=== PATIENT | male | born 1960 | race Caucasian/White ===

== ENCOUNTER 2021-01-18 08:30 | Outpatient (CLI) | payer OTHER ==
[2021-01-18] MEDS ORDERED: FURO80TA3 PO (08:58)
[2021-01-18] MEDS ORDERED: IRON PO (08:58)
[2021-01-18] MEDS ORDERED: LISI-167 PO (08:58)
[2021-01-18] MEDS ORDERED: CARV12.52 PO (08:58)
[2021-01-18] MEDS ORDERED: ATOR20TA37 PO (08:58)
[2021-01-18 09:30] LABS: BASOPHILS % (AUTO) 1 % (0-1); EOSINOPHILS % (AUTO) 3 % (1-7); LYMPHOCYTES % (AUTO) 30 % (22-44); MEAN CORPUSCULAR HEMOGLOBIN 34.4 pg (27.5-34.5); MEAN CORPUSCULAR HGB CONC 33.8 g/dL (33.2-36.2); MEAN PLATELET VOLUME 7.3 fL (7.4-10.4); MONOCYTES % (AUTO) 7 % (2-9); NEUTROPHILS % (AUTO) 59 % (42-75); PLATELET COUNT 150 x10^3/uL (130-400); RED BLOOD COUNT 3.12 x10^6/uL (4.38-5.82); RED CELL DISTRIBUTION WIDTH 17.6 % (9.4-14.8)
[2021-01-18 09:39] LABS: ALANINE AMINOTRANSFERASE 16 U/L (12-78); ALBUMIN 3.7 g/dL (3.4-5.0); ANION GAP 7 mmol/L (5-15); CALCIUM 9.3 mg/dL (8.5-10.1); CHLORIDE 101 mmol/L (98-107); CREATININE 5.58 mg/dL (0.7-1.3); INTERNATIONAL NORMALIZED RATIO 1.01 (0.93-1.1); PROTHROMBIN TIME 10.8 Seconds (9.6-11.5)
[2021-01-18 09:41] LABS: ALKALINE PHOSPHATASE 92 U/L (45-117); BILIRUBIN,TOTAL 0.5 mg/dL (0.2-1.0); TOTAL PROTEIN 7.4 g/dL (6.4-8.2)
== END 2021-01-18 23:59 | disposition home or self-care (01) ==
LOC: STAR 08:30
PROVIDERS: ATTEND Surgery
DX: Z01.818 Encounter for other preprocedural examination (principal); N18.6 End stage renal disease
CPT/HCPCS: 36415; 80053; 85025; 85610; 85730; 93005

== ENCOUNTER → 2021-01-29 | Outpatient (CLI) | payer OTHER ==
[~2021-01-29] MED LIST: ATOR20TA37 PO; CARV12.52 PO; FURO80TA3 PO; IRON PO; LISI-167 PO
== END | disposition home or self-care (01) ==
LOC: STAR 09:36
PROVIDERS: ATTEND Surgery
DX: Z20.822 Contact with and (suspected) exposure to COVID-19 (principal)
CPT/HCPCS: U0003; U0005

== ENCOUNTER 2021-02-02 10:08 | Day surgery (SDC) | payer MEDICAID, OTHER ==
[~2021-02-02] VITALS: Ht 167.6 cm; Wt 60.5 kg
[~2021-02-02 10:08] MED LIST changes: +BUPIVACAINE/PF 0.5% ONE; +EPINEPHRINE 1 MG/ML, 1ML ONE; +HEPARIN 1,000 UNITS/ML, 10ML ONE; +PAPAVERINE 30 MG/ML, 2ML ONE; +PROTAMINE SULFATE 10 MG/ML, 5ML ONE; +THROMBIN 20,000 UNIT VIAL TP ONE
[2021-02-02] MEDS ORDERED: CHLORHEXIDINE 15 ML UDC PO ONE (11:00)
[2021-02-02] MEDS ORDERED: SODIUM CHLORIDE 0.9% 1,000 ML IV SCH (11:00)
[2021-02-02] MEDS ORDERED: CHLORHEXIDINE 15 ML UDC ONE (11:14)
[2021-02-02] MEDS ORDERED: FENTANYL PF 100 MCG/2ML ONE (12:00)
[2021-02-02] MEDS ORDERED: HEPARIN 1,000 UNITS/ML, 10ML IV ONE (14:13)
[2021-02-02] MEDS ORDERED: hydrALAzine 20 MG/ML, 1ML IV PRN (14:30)
[2021-02-02] MEDS ORDERED: METOPROLOL 1 MG/ML, 5ML IV PRN (14:30)
[2021-02-02] MEDS ORDERED: ACETAMINOPHEN 325 MG TABLET PO PRN (14:30)
[2021-02-02] MEDS ORDERED: FENTANYL PF 100 MCG/2ML IV PRN (14:30)
[2021-02-02] MEDS ORDERED: ALBUTEROL/IPRATROPIUM 2.5MG/0.5MG, 3 ML NPPB PRN (14:30)
[2021-02-02] MEDS ORDERED: OXYcodone 5 MG/5 ML ORAL.SOL UDC PO PRN (14:30)
[2021-02-02] MEDS ORDERED: HYDROmorphone 1 MG/ML, 1ML INJ IVPush PRN (14:30)
[2021-02-02] MEDS ORDERED: PROMETHAZINE 25 MG/ML, 1ML IVPush PRN (14:30)
[2021-02-02] MEDS ORDERED: LABETALOL 5MG/ML, 20ML IV PRN (14:30)
[2021-02-02] MEDS ORDERED: ONDANSETRON 2MG/ML, 2ML IVPush PRN (14:30)
[2021-02-02] MEDS ORDERED: PROMETHAZINE 25 MG SUPP PR PRN (14:30)
[2021-02-02] MEDS ORDERED: LORazepam 2 MG/ML, 1ML IVPush PRN (14:30)
[2021-02-02] MEDS ORDERED: METHOCARBAMOL 1,000 MG in DEXTROSE 5% 100 ML IV PRN (14:30)
[2021-02-02] MEDS ORDERED: DEXAMETHASONE 4 MG/ML, 5ML ONE (14:48)
[2021-02-02] MEDS ORDERED: ONDANSETRON 2MG/ML, 2ML ONE (14:48)
[2021-02-02] MEDS ORDERED: CEFAZOLIN 1,000 MG ONE (14:48)
[2021-02-02] MEDS ORDERED: PROPOFOL 10 MG/ML, 20ML ONE (14:48)
== END 2021-02-02 17:10 | disposition home or self-care (01) ==
LOC: OUT 10:08
PROVIDERS: ATTEND Surgery
DX: I13.2 Hypertensive heart and chronic kidney disease with heart failure and with stage 5 chronic kidney disease, or end stage renal disease (principal); N18.6 End stage renal disease; I50.20 Unspecified systolic (congestive) heart failure; M06.9 Rheumatoid arthritis, unspecified; M13.80 Other specified arthritis, unspecified site; J44.9 Chronic obstructive pulmonary disease, unspecified; F17.210 Nicotine dependence, cigarettes, uncomplicated; Z79.899 Other long term (current) drug therapy; Z90.49 Acquired absence of other specified parts of digestive tract; Z99.2 Dependence on renal dialysis
CPT/HCPCS: 36415; 36821; J0171; J0690; J1100; J1644; J2405; J2704; J3010; J7030; 80047; J2720; J2440